=== PATIENT | male | born 1995 | race African-American/Black ===

== ENCOUNTER 2021-06-05 19:27 | Emergency (ER) | payer OTHER ==
[2021-06-05 19:56] VITALS: BP 119/78; PULSE 71; TEMP 98.5; BMI 25.1
== END 2021-06-05 21:50 | disposition home or self-care (01) ==
LOC: JERFT 19:27
DX: M25.512 Pain in left shoulder (principal); V49.50XA Passenger injured in collision with unspecified motor vehicles in traffic accident, initial encounter
CPT/HCPCS: 99283-25